=== PATIENT | male | born 1965 | race Caucasian/White ===

== ENCOUNTER 2021-06-03 06:32 | Inpatient (IN) ==
[2021-05-26 12:57] LABS: Appearance,Urine CLEAR (Clear); Bilirubin,Urine Negative (Negative); Color,Urine YELLOW; Culture Indicated,Urine No; Glucose,Urine (UA) Negative (Negative); Ketones,Urine Negative (Negative); Leukocyte Esterase,Urine Negative /uL (Negative); Nitrate,Urine Negative (Negative); Protein,Urine Negative (Negative); Urine Blood Negative (Negative); Urobilinogen,Urine Negative
[2021-05-26 14:45] LABS: Basophils # (Auto) 0 K/mcL (0.00-0.30); Basophils % (Auto) 0 % (0.0-2.0); Eosinophils # (Auto) 0.09 K/mcL (0.00-0.70); Eosinophils % (Auto) 1.2 % (0.0-7.0); Hematocrit 39.8 % (40.1-51.0); Hemoglobin 13.2 g/dL (13.7-17.5); Lymphocytes # (Auto) 4.02 K/mcL (1.50-4.80); Lymphocytes % (Auto) 52.4 % (15.5-49.0); Mean Cell Volume 93.2 fL (80.0-100.0); Mean Corpuscular HGB Conc 33.2 g/dL (31.0-36.0); Mean Platelet Volume 10.6 fL (7.4-10.4); Monocytes # (Auto) 0.44 K/mcL (0.10-0.90); Monocytes % (Auto) 5.7 % (1.0-12.0); Neutrophils % (Auto) 40.7 % (38.0-78.0); Platelet Count 190 K/mcL (140-440); RBC 4.27 M/mcL (4.63-6.08); Red Cell Distribution Width 13.1 % (11.5-14.5); WBC 7.7 K/mcL (4.5-11.0)
[2021-05-26 14:54] LABS: Blood Urea Nitrogen 18 mg/dL (6-20); Calcium 9.9 mg/dL (8.6-10.4); Carbon Dioxide 25 mmol/L (22-30); Chloride 98 mmol/L (96-108); Glomerular Filtration Rate 95; Glucose 83 mg/dL (70-105)
[2021-05-26 15:10] LABS: INR 1.2 (0.9-1.1); Prothrombin Time 15.8 sec (11.9-14.5)
--- NOTE | 2021-05-27 18:33 | EKG ---
[facility] Test Date: 2021-05-26 Pat Name: Marco A Justice Department: [employer] Room: Gender: Male Emergency Manager: : 1965 Requested By: Duncan Ramon Order Number: [id number] Reading MD: Geoffrey Weir Measurements Intervals [place] Rate: 60 P: 41 [place]: 144 QRS: -11 QRSD: 104 T: 63 QT: 416 QTc: 416 Interpretive Statements SINUS RHYTHM Electronically Signed On 05-27-2021 18:33:19 PST by Geoffrey Weir /store/[email or web address]/[id number]
[~2021-06-03 06:32] MED LIST: ceFAZolin 2 GM in DEXTROSE 5% IN WATER 50 ML IV SCH
[2021-06-03] MEDS ORDERED: DEXAMETHASONE 10 MG/ML VIAL ONE (07:31)
[2021-06-03] MEDS ORDERED: GLYCOPYRROLATE 0.2 MG/ML VIAL IV ONE (07:31)
[2021-06-03] MEDS ORDERED: PROPOFOL 200 MG/20 ML VIAL IV ONE (07:31)
[2021-06-03] MEDS ORDERED: KETAMINE 50 MG/ML Syringe (ANEST) IV ONE (07:31)
[2021-06-03] MEDS ORDERED: ePHEDrine 50 MG/5 ML SYRINGE (ANEST) IV ONE (07:31)
[2021-06-03] MEDS ORDERED: LIDOCAINE HCL/PF 100 MG/5 ML SYRINGE IV ONE (07:31)
[2021-06-03] MEDS ORDERED: ONDANSETRON 4 MG/2 ML VIAL ONE (07:31)
[2021-06-03] MEDS ORDERED: fentaNYL 100 MCG/2 ML VIAL IV ONE (07:31)
[2021-06-03] MEDS ORDERED: MAGNESIUM SULFATE 2 GM/50 ML BAG IV ONE (07:31)
[2021-06-03] MEDS ORDERED: BUPIVACAINE 0.5% 50 ML VIAL IJ ONE (08:46)
[2021-06-03] MEDS ORDERED: ONDANSETRON 4 MG/2 ML VIAL IV PRN ×2 (09:54→10:01)
[2021-06-03] MEDS ORDERED: MEPERIDINE 50 MG/ML VIAL IM PRN (10:01)
[2021-06-03] MEDS ORDERED: ACETAMINOPHEN 1,000 MG/100 ML BAG IV ONE (10:01)
[2021-06-03] MEDS ORDERED: IPRATROPIUM/ALBUTEROL 3 ML AMPUL.NEB NEB PRN (10:01)
[2021-06-03] MEDS ORDERED: NALOXONE HCL 0.4 MG/ML VIAL IV PRN (10:01)
[2021-06-03] MEDS ORDERED: PROMETHAZINE 25 MG/ML VIAL IV PRN (10:01)
[2021-06-03] MEDS ORDERED: fentaNYL 100 MCG/2 ML VIAL IV PRN (10:01)
[2021-06-03] MEDS ORDERED: LACTATED RINGERS 250 ML IV PRN (10:01)
[2021-06-03] MEDS ORDERED: MEPERIDINE 25 MG/ML VIAL IV PRN (10:01)
[2021-06-03] MEDS ORDERED: PROMETHAZINE 25 MG/ML VIAL IM PRN (10:01)
[2021-06-03] MEDS ORDERED: LACTATED RINGERS 1,000 ML IV SCH (10:15)
--- NOTE | 2021-06-03 10:46 | XRay Report ---
CLINICAL INFORMATION: osteotomy calcaneus_ lateral, ann, Broden view COMPARISON: Preoperative films 12/23/2020 FINDINGS: Osteotomy extends obliquely across the posterior and central aspect of the calcaneus. It is transfixed by two screws. Relationships appear anatomic. Casting material obscures bone detail. Ankle mortise and talocalcaneal joints normal with alignment. IMPRESSION: Calcaneal osteotomy. Anatomic alignment Interpreted and Authenticated by: Will Navarro 06/03/21
--- NOTE | 2021-06-03 11:14 | Internal Medicine Consult Note ---
HPI Data of Consult Consult date: 06/03/21 Primary Care Provider: Randy Mullen Consult Narrative Patient Information: Note initiated : 06/03/21 at 11:09 am Service Date, if different from initiated Date: [] Patient: Marco A Justice 55 y/o M admitted on for Right Calcaneous Osteotomy. Chief Complaint: [] cc:: CC: Franklin Reilly Patient here for orthopedic procedure right foot. 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 History of depression and anxiety and obstructive sleep apnea. Surgery without complications. Patient postop in the PACU. Review of Systems: Pertinent positives as above. Denies headache/fever/chills/nausea/vomiting/chest or abdominal pain/cough/dyspnea/d iarrhea. Remaining 10 point review of system reviewed negative MEDS/ALLERGIES Home Medications and Allergies Home Medications Medication Instructions Recorded Confirmed Type apixaban 5 mg tablet (Eliquis) 5 mg PO BID 05/26/21 06/03/21 History atorvastatin 10 mg tablet 10 mg PO QDAY 05/26/21 06/03/21 History baclofen 10 mg tablet 20 mg PO TID 05/26/21 06/03/21 History citicoline 500 mg capsule 1,000 mg PO BID 05/26/21 06/03/21 History cyclosporine 0.05 % eye drops in a 1 drp OPHTHALMIC (EYE) Q12H 05/26/21 06/03/21 History dropperette (Restasis) divalproex 250 mg tablet,extended 250 mg PO BID 05/26/21 06/03/21 History release 24 hr lorazepam 1 mg tablet 1 mg PO QDAY PRN 05/26/21 06/03/21 History melatonin 10 mg tablet 40 mg PO QHS 05/26/21 06/03/21 History multivitamin 1 tab PO QDAY 05/26/21 06/03/21 History trazodone 50 mg tablet 100 mg PO QHS 05/26/21 06/03/21 History Allergies Allergy/AdvReac Type Severity Reaction Status Date / Time Penicillins Allergy Mild Other Verified 06/03/21 06:36 EXAM Constitutional Vitals: Temp Pulse Resp BP Pulse Ox 97.5 F 72 13 132/79 100 06/03/21 10:51 06/03/21 10:54 06/03/21 10:54 06/03/21 10:51 06/03/21 10:54 Exam: General: Alert, Awake, No acute Distress Eyes/N/T: EOMI, PERRL, Head/Neck: neck supple, normocephalic atraumatic CV: RRR, No murmurs, normal s1/s2 Pulm: Clear b/l, no wheezing/rhonchi/rales Abd: soft, nontender, +BS x4 Ext: no clubbing/cyanosis/edema Neuro: Alert, right hemiplegia from previous stroke Skin: warm/dry A/P Narrative A/P Narrative: A: *Status post right foot/ankle surgery: *h/o CVA with residual right hemiplegia: *h/o venous thrombosis: On Eliquis *Depression/anxiety: *NAGA: P: -Foot/ankle per Dr. Reilly -Continue home anticoagulation and other medications -PT/OT -Case management for placement needs Time Spent With Patient Time: Total time spent is greater than 50% in coordination of care (as documented) at patient's floor/unit and/or counseling patient:
[2021-06-03] MEDS: 0.9 % SODIUM CHLORIDE 10 ML SYRINGE IV SCH ×2 (13:39→22:57)
[2021-06-03] MEDS: morphine 4 MG/ML VIAL IV PRN (13:55)
--- NOTE | 2021-06-03 14:03 | Brief Operative Note ---
Brief Operative Note Date of procedure: 06/03/21 Pre-op diagnosis: peroneal nerve palsy; unstable ankle; Achilles contracture; right Post-op diagnosis: same Procedure: PL transfer to TA; Cheney osteotomy; KAREN; brostrom Grafts/Implants: Yes Anesthesia: GETA Findings: same Complications: none Surgeon: Franklin Reilly Estimated blood loss (cc): 0 Tourniquet Time (Minutes): 95 Specimens Removed/Pathology: none sent Condition: stable Disposition: PACU
[2021-06-03] MEDS: BACLOFEN 10 MG TABLET PO SCH ×2 (14:53→19:11)
[2021-06-03] MEDS: ceFAZolin 1 GM VIAL IV SCH ×2 (14:53→22:57)
[2021-06-03] MEDS: HYDROCODONE/APAP 7.5/325MG TABLET PO PRN ×2 (16:00→23:00)
[2021-06-03] MEDS: LORazepam 1 MG TABLET PO PRN (16:34)
[2021-06-03] MEDS: HYDROmorphone 0.5 MG/0.5 ML SYRINGE IV PRN (18:53)
[2021-06-03] MEDS: DIVALPROEX SODIUM 250 MG TABLET PO SCH (19:11)
[2021-06-03] MEDS: traZODone HCL 50 MG TABLET PO SCH (19:11)
[2021-06-03] MEDS: APIXABAN 5 MG TABLET PO SCH (19:11)
[2021-06-03] MEDS: Cyclosporine [Restasis] 0.05 % Dropperette OU SCH (19:13)
[2021-06-03] MEDS: CITICOLINE 500 MG PO SCH (19:13)
[2021-06-04] MEDS: HYDROmorphone 0.5 MG/0.5 ML SYRINGE IV PRN (01:00)
[2021-06-04] MEDS: LORazepam 1 MG TABLET PO PRN (01:39)
[2021-06-04] MEDS: HYDROCODONE/APAP 7.5/325MG TABLET PO PRN ×5 (04:41→20:49)
[2021-06-04] MEDS: 0.9 % SODIUM CHLORIDE 10 ML SYRINGE IV SCH ×3 (04:42→20:50)
[2021-06-04] MEDS: MULTIVIT,THER IRON,CA,FA & MIN 1 TABLET PO SCH (07:58)
[2021-06-04] MEDS: APIXABAN 5 MG TABLET PO SCH ×2 (07:58→20:50)
[2021-06-04] MEDS: DIVALPROEX SODIUM 250 MG TABLET PO SCH ×2 (07:58→20:50)
[2021-06-04] MEDS: ATORVASTATIN 10 MG TABLET PO SCH (07:58)
[2021-06-04] MEDS: BACLOFEN 10 MG TABLET PO SCH ×3 (07:58→20:49)
[2021-06-04] MEDS: CITICOLINE 500 MG PO SCH ×2 (07:59→21:42)
[2021-06-04] MEDS: Cyclosporine [Restasis] 0.05 % Dropperette OU SCH ×2 (08:00→21:42)
--- NOTE | 2021-06-04 08:23 | Orthopedic Progress Note ---
SUBJECTIVE Subjective Patient information: Note initiated : 06/04/21 at 8:22 am Service Date, if different from initiated Date: [] Patient: Marco A Justice 55 y/o M admitted on 06/03/21 for Right Calcaneous Osteotomy. Chief Complaint: [] Constitutional Vitals: Vital Signs Temp Pulse Resp BP Pulse Ox 97.2 F 69 18 104/64 95 06/04/21 07:27 06/04/21 07:27 06/04/21 07:27 06/04/21 07:27 06/04/21 07:27 Period Temp Pulse Resp BP Sys/Mccall Pulse Ox Last 24 Hr 96.8 F-97.8 F 55-85 7-18 94-141/60-83 94-100 Intake and Output 06/03/21 06/04/21 06/04/21 21:59 05:59 13:59 Intake Total 460 Output Total 650 1300 Balance -650 -840 Weight 176 lb 7 oz Intake & Output: Intake & Output 06/03/21 06/04/21 06/04/21 21:59 05:59 13:59 Intake Total 460 Output Total 650 1300 Balance -650 -840 Weight 176 lb 7 oz Intake: Oral 460 Output: Urine Catheter Amount 650 1300 Other: Meal Dinner Percent of Meal Consumed 100% Feeding Ability Independent Urine Appearance Clear Urine Color Bright Yellow Bright Yellow Uretheral ([place]) Bright Yellow OBJ DATA Labs CBC & Chem 7: 05/26/21 08:48 05/26/21 08:48 Meds: Medications Hydrocodone Bitart/Acetaminophen (Hydrocodone/Apap 7.5/325mg Tablet) 1 - 2 tab PO Q4HP PRN; Protocol PRN Reason: Per Pain Protocol Last Admin: 06/04/21 04:41 Dose: 2 tab Documented by: Apixaban (Apixaban 5 Mg Tablet) 5 mg PO BID [facility] Last Admin: 06/04/21 07:58 Dose: 5 mg Documented by: Atorvastatin Calcium (Atorvastatin 10 Mg Tablet) 10 mg PO QDAY [facility] Last Admin: 06/04/21 07:58 Dose: 10 mg Documented by: Baclofen (Baclofen 10 Mg Tablet) 20 mg PO TID [facility] Last Admin: 06/04/21 07:58 Dose: 20 mg Documented by: Divalproex Sodium (Divalproex Sodium 250 Mg Tablet) 250 mg PO BID [facility] Last Admin: 06/04/21 07:58 Dose: 250 mg Documented by: Hydromorphone HCl (Hydromorphone 0.5 Mg/0.5 Ml Syringe) 0.5 mg IV Q15MIN PRN; Protocol PRN Reason: Per Pain Protocol Last Admin: 06/04/21 01:00 Dose: 0.5 mg Documented by: Iron Carb/Multivit/Equipment Mechanic/Folic Acid (Multivit,Ther Iron,Ca,Fa & Min 1 Tablet) 1 tab PO DAILY [facility] Last Admin: 06/04/21 07:58 Dose: 1 tab Documented by: Lorazepam (Lorazepam 1 Mg Tablet) 1 mg PO DAILYP PRN PRN Reason: ANXIETY/SEDATION Last Admin: 06/04/21 01:39 Dose: 1 mg Documented by: Morphine Sulfate (Morphine 4 Mg/Ml Vial) 2 - 6 mg IV Q1HP PRN; Protocol PRN Reason: Per Pain Protocol Last Admin: 06/03/21 13:55 Dose: 2 mg Documented by: Ondansetron HCl (Ondansetron 4 Mg/2 Ml Vial) 4 mg IV Q6HP PRN; Protocol PRN Reason: Nausea And Vomiting Citicoline 500 Mg (Capsule) 2 dose PO BID [facility] Last Admin: 06/04/21 07:59 Dose: Not Given Documented by: Cyclosporine [ Restasis] 0.05 % Dropperette 1 dose OU Q12H [facility] Last Admin: 06/04/21 08:00 Dose: Not Given Documented by: Melatonin 10 Mg (Tablet) 1 dose PO QHS [facility] Last Admin: 06/03/21 19:13 Dose: Not Given Documented by: Sodium Chloride (0.9 % Sodium Chloride 10 Ml Syringe) 10 ml IV Q8 [facility] Last Admin: 06/04/21 04:42 Dose: 10 ml Documented by: Trazodone HCl (Trazodone Hcl 50 Mg Tablet) 100 mg PO QHS [facility] Last Admin: 06/03/21 19:11 Dose: 100 mg Documented by: A/P Time Spent With Patient Time: Total time spent is greater than 50% in coordination of care (as documented) at patient's floor/unit and/or counseling patient:
--- NOTE | 2021-06-04 08:33 | Orthopedic Progress Note ---
SUBJECTIVE Subjective Patient information: Note initiated : 06/04/21 at 8:22 am Service Date, if different from initiated Date: [] Patient: Marco A Justice 55 y/o M admitted on 06/03/21 for Right Calcaneous Osteotomy. Chief Complaint: [] Principal diagnosis: S/P right foot/ankle surgery Interval history: POD 1 from right foot and ankle surgery. Patient is doing well and has had minimal pain. He did have some drainage through his splint after surgery but it has since stopped. He is wondering if he can have his catheter removed this morning. He denies any ISLAS, CP, SOB, or any other acute symptoms. Constitutional Vitals: Vital Signs Temp Pulse Resp BP Pulse Ox 97.2 F 69 18 104/64 95 06/04/21 07:27 06/04/21 07:27 06/04/21 07:27 06/04/21 07:27 06/04/21 07:27 Period Temp Pulse Resp BP Sys/Mccall Pulse Ox Last 24 Hr 96.8 F-97.8 F 55-85 7-18 94-141/60-83 94-100 Intake and Output 06/03/21 06/04/21 06/04/21 21:59 05:59 13:59 Intake Total 460 Output Total 650 1300 Balance -650 -840 Weight 176 lb 7 oz Intake & Output: Intake & Output 06/03/21 06/04/21 06/04/21 21:59 05:59 13:59 Intake Total 460 Output Total 650 1300 Balance -650 -840 Weight 176 lb 7 oz Intake: Oral 460 Output: Urine Catheter Amount 650 1300 Other: Meal Dinner Percent of Meal Consumed 100% Feeding Ability Independent Urine Appearance Clear Urine Color Bright Yellow Bright Yellow Uretheral ([place]) Bright Yellow Exam: Exam of the RLE reveals some drainage through his splint but no active bleeding. He is NVI in RLE, no calf tenderness bilaterally OBJ DATA Labs CBC & Chem 7: 05/26/21 08:48 05/26/21 08:48 Meds: Medications Hydrocodone Bitart/Acetaminophen (Hydrocodone/Apap 7.5/325mg Tablet) 1 - 2 tab PO Q4HP PRN; Protocol PRN Reason: Per Pain Protocol Last Admin: 06/04/21 04:41 Dose: 2 tab Documented by: Apixaban (Apixaban 5 Mg Tablet) 5 mg PO BID [facility] Last Admin: 06/04/21 07:58 Dose: 5 mg Documented by: Atorvastatin Calcium (Atorvastatin 10 Mg Tablet) 10 mg PO QDAY [facility] Last Admin: 06/04/21 07:58 Dose: 10 mg Documented by: Baclofen (Baclofen 10 Mg Tablet) 20 mg PO TID [facility] Last Admin: 06/04/21 07:58 Dose: 20 mg Documented by: Divalproex Sodium (Divalproex Sodium 250 Mg Tablet) 250 mg PO BID [facility] Last Admin: 06/04/21 07:58 Dose: 250 mg Documented by: Hydromorphone HCl (Hydromorphone 0.5 Mg/0.5 Ml Syringe) 0.5 mg IV Q15MIN PRN; Protocol PRN Reason: Per Pain Protocol Last Admin: 06/04/21 01:00 Dose: 0.5 mg Documented by: Iron Carb/Multivit/[place]/Folic Acid (Multivit,Ther Iron,Ca,Fa & Min 1 Tablet) 1 tab PO DAILY [facility] Last Admin: 06/04/21 07:58 Dose: 1 tab Documented by: Lorazepam (Lorazepam 1 Mg Tablet) 1 mg PO DAILYP PRN PRN Reason: ANXIETY/SEDATION Last Admin: 06/04/21 01:39 Dose: 1 mg Documented by: Morphine Sulfate (Morphine 4 Mg/Ml Vial) 2 - 6 mg IV Q1HP PRN; Protocol PRN Reason: Per Pain Protocol Last Admin: 06/03/21 13:55 Dose: 2 mg Documented by: Ondansetron HCl (Ondansetron 4 Mg/2 Ml Vial) 4 mg IV Q6HP PRN; Protocol PRN Reason: Nausea And Vomiting Citicoline 500 Mg (Capsule) 2 dose PO BID [facility] Last Admin: 06/04/21 07:59 Dose: Not Given Documented by: Cyclosporine [ Restasis] 0.05 % Dropperette 1 dose OU Q12H [facility] Last Admin: 06/04/21 08:00 Dose: Not Given Documented by: Melatonin 10 Mg (Tablet) 1 dose PO QHS [facility] Last Admin: 06/03/21 19:13 Dose: Not Given Documented by: Sodium Chloride (0.9 % Sodium Chloride 10 Ml Syringe) 10 ml IV Q8 [facility] Last Admin: 06/04/21 04:42 Dose: 10 ml Documented by: Trazodone HCl (Trazodone Hcl 50 Mg Tablet) 100 mg PO QHS [facility] Last Admin: 06/03/21 19:11 Dose: 100 mg Documented by: A/P Narrative A/P Narrative: POD 1 s/p right foot/ankle surgery 1. Patient is POD 1 after foot and ankle surgery and is currently non-weight bearing on the right leg. He had issues after surgery with urination and had to be catheterized in the PACU. He previously had issues with surgery where he had a stroke and now has hemiparesis, has to be on blood thinners daily, is a fall risk due to hemiparesis and non-weightbearing status on right leg, has impaired communication, and is concerned of possible recurrent stroke at home and due to poor support care at home in this condition I feel that he is a candidate for placement in a correction facility until he is more stable. He also requires PT and speech therapy after surgery which would be much easier and convenient at the correction facility. 2. Case management to find placement as soon as possible, if today contact Dr. Reilly for discharge. 3. May discontinue vitale catheter 4. Remain non-weightbearing in splint until follow up around POD 14. 5. PT/OT while in hospital 6. Continue home anticoagulants Time Spent With Patient Time: Total time spent is greater than 50% in coordination of care (as documented) at patient's floor/unit and/or counseling patient:
[2021-06-04] MEDS: traZODone HCL 50 MG TABLET PO SCH (20:49)
[2021-06-05] MEDS: HYDROCODONE/APAP 7.5/325MG TABLET PO PRN ×4 (01:59→15:49)
[2021-06-05] MEDS: 0.9 % SODIUM CHLORIDE 10 ML SYRINGE IV SCH ×3 (04:59→20:20)
--- NOTE | 2021-06-05 07:18 | Orthopedic Progress Note ---
SUBJECTIVE Subjective Patient information: Note initiated : 06/05/21 at 7:15 am Service Date, if different from initiated Date: [] Patient: Marco A Justice 55 y/o M admitted on 06/03/21 for Right Calcaneous Osteotomy. Chief Complaint: [] Principal diagnosis: S/P right foot/ankle surgery Interval history: Postop day 2 status post right foot/ankle surgery and the patient is doing well with pain but does have some issues with urination after his catheter was removed yesterday. He is complaining of a fullness and issues voiding however he did have an episode of incontinence yesterday. He denies any chest pain, shortness of breath, fever, dysuria or any other acute symptoms. Constitutional Vitals: Vital Signs Temp Pulse Resp BP Pulse Ox 99 F 73 16 90/51 92 06/05/21 04:00 06/05/21 04:00 06/05/21 04:00 06/05/21 04:00 06/05/21 04:00 Period Temp Pulse Resp BP Sys/Mccall Pulse Ox Last 24 Hr 97.2 F-99 F 60-73 16-19 87-104/51-64 87-99 Intake and Output 06/04/21 06/05/21 06/05/21 21:59 05:59 13:59 Intake Total 120 Output Total 500 301 Balance -500 -181 Weight 178 lb Intake & Output: Intake & Output 06/04/21 06/05/21 06/05/21 21:59 05:59 13:59 Intake Total 120 Output Total 500 301 Balance -500 -181 Weight 178 lb Intake: Oral 120 Output: Void Amount 500 300 # of times incontinent of urine 1 Other: Urine Appearance Clear Clear Urine Color [place] Bright Yellow Urine Odor Normal Exam: Exam of the right lower extremity reveals dressings in place and dry. Patient is neurovascular intact in the right lower extremity. He has no calf tenderness bilaterally. OBJ DATA Labs CBC & Chem 7: 05/26/21 08:48 05/26/21 08:48 Meds: Medications Hydrocodone Bitart/Acetaminophen (Hydrocodone/Apap 7.5/325mg Tablet) 1 - 2 tab PO Q4HP PRN; Protocol PRN Reason: Per Pain Protocol Last Admin: 06/05/21 06:13 Dose: 2 tab Documented by: Apixaban (Apixaban 5 Mg Tablet) 5 mg PO BID [facility] Last Admin: 06/04/21 20:50 Dose: 5 mg Documented by: Atorvastatin Calcium (Atorvastatin 10 Mg Tablet) 10 mg PO QDAY [facility] Last Admin: 06/04/21 07:58 Dose: 10 mg Documented by: Baclofen (Baclofen 10 Mg Tablet) 20 mg PO TID [facility] Last Admin: 06/04/21 20:49 Dose: 20 mg Documented by: Divalproex Sodium (Divalproex Sodium 250 Mg Tablet) 250 mg PO BID [facility] Last Admin: 06/04/21 20:50 Dose: 250 mg Documented by: Hydromorphone HCl (Hydromorphone 0.5 Mg/0.5 Ml Syringe) 0.5 mg IV Q15MIN PRN; Protocol PRN Reason: Per Pain Protocol Last Admin: 06/04/21 01:00 Dose: 0.5 mg Documented by: Iron Carb/Multivit/[place]/Folic Acid (Multivit,Ther Iron,Ca,Fa & Min 1 Tablet) 1 tab PO DAILY [facility] Last Admin: 06/04/21 07:58 Dose: 1 tab Documented by: Lorazepam (Lorazepam 1 Mg Tablet) 1 mg PO DAILYP PRN PRN Reason: ANXIETY/SEDATION Last Admin: 06/04/21 01:39 Dose: 1 mg Documented by: Morphine Sulfate (Morphine 4 Mg/Ml Vial) 2 - 6 mg IV Q1HP PRN; Protocol PRN Reason: Per Pain Protocol Last Admin: 06/03/21 13:55 Dose: 2 mg Documented by: Ondansetron HCl (Ondansetron 4 Mg/2 Ml Vial) 4 mg IV Q6HP PRN; Protocol PRN Reason: Nausea And Vomiting Citicoline 500 Mg (Capsule) 2 dose PO BID [facility] Last Admin: 06/04/21 21:42 Dose: Not Given Documented by: Cyclosporine [ Restasis] 0.05 % Dropperette 1 dose OU Q12H [facility] Last Admin: 06/04/21 21:42 Dose: Not Given Documented by: Melatonin 10 Mg (Tablet) 1 dose PO QHS [facility] Last Admin: 06/04/21 21:42 Dose: Not Given Documented by: Sodium Chloride (0.9 % Sodium Chloride 10 Ml Syringe) 10 ml IV Q8 [facility] Last Admin: 06/05/21 04:59 Dose: 10 ml Documented by: Tamsulosin HCl (Tamsulosin 0.4 Mg Capsule) 0.4 mg PO HS JULISA Trazodone HCl (Trazodone Hcl 50 Mg Tablet) 100 mg PO QHS [facility] Last Admin: 06/04/21 20:49 Dose: 100 mg Documented by: A/P Narrative A/P Narrative: Postop day 2 status post right ankle/foot surgery Plan: Patient is complaining of issues urinating and his catheter was removed yesterday. At this point I will begin Flomax 0.4 mg daily. He is also not had a bowel movement yet so we will start MiraLAx daily. He is to remain nonweightbearing on the right lower extremity and continue with physical t herapy. We will continue planning for long-term facility discharge at earliest convenience. Time Spent With Patient Time: Total time spent is greater than 50% in coordination of care (as documented) at patient's floor/unit and/or counseling patient:
[2021-06-05] MEDS: ATORVASTATIN 10 MG TABLET PO SCH (08:05)
[2021-06-05] MEDS: MULTIVIT,THER IRON,CA,FA & MIN 1 TABLET PO SCH (08:05)
[2021-06-05] MEDS: POLYETHYLENE GLYCOL 3350 17 GM PACKET PO SCH (08:05)
[2021-06-05] MEDS: BACLOFEN 10 MG TABLET PO SCH ×3 (08:05→20:19)
[2021-06-05] MEDS: APIXABAN 5 MG TABLET PO SCH ×2 (08:05→20:19)
[2021-06-05] MEDS: DIVALPROEX SODIUM 250 MG TABLET PO SCH ×2 (08:05→20:20)
[2021-06-05] MEDS: CITICOLINE 500 MG PO SCH ×2 (08:06→20:27)
[2021-06-05] MEDS: Cyclosporine [Restasis] 0.05 % Dropperette OU SCH ×2 (08:06→20:27)
[2021-06-05] MEDS: morphine 4 MG/ML VIAL IV PRN (12:55)
[2021-06-05] MEDS ORDERED: TAMSULOSIN 0.4 MG CAPSULE PO ONE (13:40)
[2021-06-05] MEDS: HYDROmorphone 0.5 MG/0.5 ML SYRINGE IV PRN (19:01)
[2021-06-05] MEDS: TAMSULOSIN 0.4 MG CAPSULE PO SCH (20:19)
[2021-06-05] MEDS: traZODone HCL 50 MG TABLET PO SCH (20:20)
[2021-06-05] MEDS: LORazepam 1 MG TABLET PO PRN (21:24)
[2021-06-06] MEDS: 0.9 % SODIUM CHLORIDE 10 ML SYRINGE IV SCH ×3 (04:47→21:13)
[2021-06-06] MEDS: HYDROCODONE/APAP 7.5/325MG TABLET PO PRN ×5 (05:24→23:45)
[2021-06-06] MEDS: MULTIVIT,THER IRON,CA,FA & MIN 1 TABLET PO SCH (08:10)
[2021-06-06] MEDS: DIVALPROEX SODIUM 250 MG TABLET PO SCH ×2 (08:10→20:51)
[2021-06-06] MEDS: POLYETHYLENE GLYCOL 3350 17 GM PACKET PO SCH (08:10)
[2021-06-06] MEDS: ATORVASTATIN 10 MG TABLET PO SCH (08:10)
[2021-06-06] MEDS: APIXABAN 5 MG TABLET PO SCH ×2 (08:10→20:51)
[2021-06-06] MEDS: BACLOFEN 10 MG TABLET PO SCH ×3 (08:11→20:51)
[2021-06-06] MEDS: CITICOLINE 500 MG PO SCH ×2 (08:45→21:14)
[2021-06-06] MEDS: Cyclosporine [Restasis] 0.05 % Dropperette OU SCH ×2 (08:45→21:14)
--- NOTE | 2021-06-06 08:46 | Orthopedic Progress Note ---
SUBJECTIVE Subjective Patient information: Note initiated : 06/06/21 at 8:44 am Service Date, if different from initiated Date: [] Patient: Marco A Justice 55 y/o M admitted on 06/03/21 for Right Calcaneous Osteotomy. Chief Complaint: [] Principal diagnosis: S/P right foot/ankle surgery Constitutional Vitals: Vital Signs Temp Pulse Resp BP Pulse Ox 98.6 F 77 16 110/70 96 06/06/21 07:10 06/06/21 07:10 06/06/21 07:10 06/06/21 07:10 06/06/21 07:10 Period Temp Pulse Resp BP Sys/Mccall Pulse Ox Last 24 Hr 98.1 F-98.8 F 75-80 16-20 106-110/61-75 94-97 Intake and Output 06/05/21 06/06/21 06/06/21 21:59 05:59 13:59 Output Total 301 2 150 Balance -301 -2 -150 Weight 176 lb 3.2 oz Intake & Output: Intake & Output 06/05/21 06/06/21 06/06/21 21:59 05:59 13:59 Output Total 301 2 150 Balance -301 -2 -150 Weight 176 lb 3.2 oz Output: Void Amount 300 150 # of times incontinent of urine 1 2 Other: Meal Dinner Percent of Meal Consumed 100% Urine Appearance Clear Urine Color [place] Bright Yellow Expanded Lower Extremity Exam Foot/Toe exam: Present normal inspection Gait: Present unable to bear weight OBJ DATA Labs CBC & Chem 7: 05/26/21 08:48 05/26/21 08:48 Meds: Medications Hydrocodone Bitart/Acetaminophen (Hydrocodone/Apap 7.5/325mg Tablet) 1 - 2 tab PO Q4HP PRN; Protocol PRN Reason: Per Pain Protocol Last Admin: 06/06/21 05:24 Dose: 1 tab Documented by: Apixaban (Apixaban 5 Mg Tablet) 5 mg PO BID [facility] Last Admin: 06/06/21 08:10 Dose: 5 mg Documented by: Atorvastatin Calcium (Atorvastatin 10 Mg Tablet) 10 mg PO QDAY [facility] Last Admin: 06/06/21 08:10 Dose: 10 mg Documented by: Baclofen (Baclofen 10 Mg Tablet) 20 mg PO TID [facility] Last Admin: 06/06/21 08:11 Dose: 20 mg Documented by: Divalproex Sodium (Divalproex Sodium 250 Mg Tablet) 250 mg PO BID [facility] Last Admin: 06/06/21 08:10 Dose: 250 mg Documented by: Hydromorphone HCl (Hydromorphone 0.5 Mg/0.5 Ml Syringe) 0.5 mg IV Q15MIN PRN; P rotocol PRN Reason: Per Pain Protocol Last Admin: 06/05/21 19:01 Dose: 0.5 mg Documented by: Iron Carb/Multivit/[employer]esy [employer]/Folic Acid (Multivit,Ther Iron,Ca,Fa & Min 1 Tablet) 1 tab PO DAILY [facility] Last Admin: 06/06/21 08:10 Dose: 1 tab Documented by: Lorazepam (Lorazepam 1 Mg Tablet) 1 mg PO DAILYP PRN PRN Reason: ANXIETY/SEDATION Last Admin: 06/05/21 21:24 Dose: 1 mg Documented by: Morphine Sulfate (Morphine 4 Mg/Ml Vial) 2 - 6 mg IV Q1HP PRN; Protocol PRN Reason: Per Pain Protocol Last Admin: 06/05/21 12:55 Dose: 2 mg Documented by: Ondansetron HCl (Ondansetron 4 Mg/2 Ml Vial) 4 mg IV Q6HP PRN; Protocol PRN Reason: Nausea And Vomiting Citicoline 500 Mg (Capsule) 2 dose PO BID [facility] Last Admin: 06/05/21 20:27 Dose: Not Given Documented by: Cyclosporine [ Restasis] 0.05 % Dropperette 1 dose OU Q12H [facility] Last Admin: 06/05/21 20:27 Dose: Not Given Documented by: Melatonin 10 Mg (Tablet) 1 dose PO QHS [facility] Last Admin: 06/05/21 20:27 Dose: Not Given Documented by: Polyethylene Glycol (Polyethylene Glycol 3350 17 Gm Packet) 17 gm PO DAILY [facility] Last Admin: 06/06/21 08:10 Dose: 17 gm Documented by: Sodium Chloride (0.9 % Sodium Chloride 10 Ml Syringe) 10 ml IV Q8 [facility] Last Admin: 06/06/21 04:47 Dose: 10 ml Documented by: Tamsulosin HCl (Tamsulosin 0.4 Mg Capsule) 0.4 mg PO [facility] Last Admin: 06/05/21 20:19 Dose: 0.4 mg Documented by: Trazodone HCl (Trazodone Hcl 50 Mg Tablet) 100 mg PO QHS [facility] Last Admin: 06/05/21 20:20 Dose: 100 mg Documented by: A/P Narrative A/P Narrative: alignment looks reduced to nl toes pink. splint intact Time Spent With Patient Time: Total time spent is greater than 50% in coordination of care (as documented) at patient's floor/unit and/or counseling patient: Total time spent with greater than 50% in coordination of care (as documented) at patient's floor/unit and/or counseling patient:: less than 15 minutes
--- NOTE | 2021-06-06 08:49 | Discharge Plan ---
DC Instructions-General Patient Instructions Dressing Care: Cover dressing in shower Discharge Plan Patient/Caregiver Discharge Instructions Activity: as per physical therapy Diet: Regular Diet Prescriptions: No Action multivitamin [Daily Multivitamin] Tablet 1 tab PO QDAY 0RF trazodone 50 mg Tablet 100 mg PO QHS 0RF atorvastatin 10 mg Tablet 10 mg PO QDAY 0RF baclofen 10 mg Tablet 20 mg PO TID 0RF lorazepam 1 mg Tablet 1 mg PO QDAY PRN (Reason: Anxiety) 0RF divalproex 250 mg Tablet Extended Release 24 Hr 250 mg PO BID 0RF Restasis 0.05 % Dropperette 1 drp OPHTHALMIC (EYE) Q12H 0RF melatonin 10 mg Tablet 40 mg PO QHS 0RF Eliquis 5 mg Tablet 5 mg PO BID 0RF citicoline 500 mg Capsule 1,000 mg PO BID 0RF Follow Up Plan Patient Disposition: Xfer SNF Rehab Potential: Fair I certify that the patient requires SNF services: Yes Overall status at discharge: patient is not back to baseline Discharge Orders: Discharge Order (Routine); Ordered 06/06/21 Ordered By: Franklin Reilly
[2021-06-06] MEDS: TAMSULOSIN 0.4 MG CAPSULE PO SCH (20:52)
[2021-06-06] MEDS: traZODone HCL 50 MG TABLET PO SCH (20:52)
[2021-06-06] MEDS: LORazepam 1 MG TABLET PO PRN (20:53)
[2021-06-07] MEDS: HYDROCODONE/APAP 7.5/325MG TABLET PO PRN ×4 (03:51→16:46)
[2021-06-07] MEDS: 0.9 % SODIUM CHLORIDE 10 ML SYRINGE IV SCH ×3 (05:52→20:34)
[2021-06-07] MEDS: LORazepam 1 MG TABLET PO PRN (08:24)
[2021-06-07] MEDS: APIXABAN 5 MG TABLET PO SCH ×2 (08:27→20:34)
[2021-06-07] MEDS: MULTIVIT,THER IRON,CA,FA & MIN 1 TABLET PO SCH (08:27)
[2021-06-07] MEDS: DIVALPROEX SODIUM 250 MG TABLET PO SCH ×2 (08:27→20:33)
[2021-06-07] MEDS: ATORVASTATIN 10 MG TABLET PO SCH (08:27)
[2021-06-07] MEDS: POLYETHYLENE GLYCOL 3350 17 GM PACKET PO SCH (08:27)
[2021-06-07] MEDS: CITICOLINE 500 MG PO SCH ×2 (09:12→20:34)
[2021-06-07] MEDS: Cyclosporine [Restasis] 0.05 % Dropperette OU SCH ×2 (09:12→20:34)
[2021-06-07] MEDS: BACLOFEN 10 MG TABLET PO SCH ×3 (09:44→20:34)
[2021-06-07] MEDS: TAMSULOSIN 0.4 MG CAPSULE PO SCH (20:33)
[2021-06-07] MEDS: traZODone HCL 50 MG TABLET PO SCH (20:33)
[2021-06-07] MEDS: SENNOSIDES/DOCUSATE SODIUM 1 TAB TABLET PO SCH (20:33)
[2021-06-08] MEDS: HYDROCODONE/APAP 7.5/325MG TABLET PO PRN ×5 (02:02→16:43)
[2021-06-08] MEDS: 0.9 % SODIUM CHLORIDE 10 ML SYRINGE IV SCH ×3 (05:49→21:01)
[2021-06-08] MEDS: ATORVASTATIN 10 MG TABLET PO SCH (08:39)
[2021-06-08] MEDS: MULTIVIT,THER IRON,CA,FA & MIN 1 TABLET PO SCH (08:39)
[2021-06-08] MEDS: CITICOLINE 500 MG PO SCH ×2 (08:39→21:04)
[2021-06-08] MEDS: APIXABAN 5 MG TABLET PO SCH ×2 (08:39→21:02)
[2021-06-08] MEDS: SENNOSIDES/DOCUSATE SODIUM 1 TAB TABLET PO SCH ×2 (08:39→21:02)
[2021-06-08] MEDS: BACLOFEN 10 MG TABLET PO SCH ×3 (08:39→21:02)
[2021-06-08] MEDS: DIVALPROEX SODIUM 250 MG TABLET PO SCH ×2 (08:39→21:02)
[2021-06-08] MEDS: POLYETHYLENE GLYCOL 3350 17 GM PACKET PO SCH (08:39)
[2021-06-08] MEDS: Cyclosporine [Restasis] 0.05 % Dropperette OU SCH ×2 (08:39→21:04)
[2021-06-08] MEDS: LORazepam 1 MG TABLET PO PRN (10:21)
[2021-06-08] MEDS: TAMSULOSIN 0.4 MG CAPSULE PO SCH (21:02)
[2021-06-08] MEDS: traZODone HCL 50 MG TABLET PO SCH (21:02)
[2021-06-09] MEDS: 0.9 % SODIUM CHLORIDE 10 ML SYRINGE IV SCH ×3 (05:16→21:01)
[2021-06-09] MEDS: MULTIVIT,THER IRON,CA,FA & MIN 1 TABLET PO SCH (08:28)
[2021-06-09] MEDS: SENNOSIDES/DOCUSATE SODIUM 1 TAB TABLET PO SCH ×2 (08:28→21:02)
[2021-06-09] MEDS: ATORVASTATIN 10 MG TABLET PO SCH (08:28)
[2021-06-09] MEDS: APIXABAN 5 MG TABLET PO SCH ×2 (08:28→21:02)
[2021-06-09] MEDS: DIVALPROEX SODIUM 250 MG TABLET PO SCH ×2 (08:28→21:02)
[2021-06-09] MEDS: BACLOFEN 10 MG TABLET PO SCH ×4 (08:28→21:01)
[2021-06-09] MEDS: Cyclosporine [Restasis] 0.05 % Dropperette OU SCH ×2 (08:29→21:01)
[2021-06-09] MEDS: CITICOLINE 500 MG PO SCH ×2 (08:29→21:01)
[2021-06-09] MEDS: POLYETHYLENE GLYCOL 3350 17 GM PACKET PO SCH (08:29)
[2021-06-09] MEDS: HYDROCODONE/APAP 7.5/325MG TABLET PO PRN ×4 (08:35→21:03)
[2021-06-09] MEDS: LORazepam 1 MG TABLET PO PRN (11:21)
[2021-06-09] MEDS: TAMSULOSIN 0.4 MG CAPSULE PO SCH (21:02)
[2021-06-09] MEDS: traZODone HCL 50 MG TABLET PO SCH (21:02)
[2021-06-09] MEDS: morphine 4 MG/ML VIAL IV PRN (22:12)
[2021-06-10] MEDS: 0.9 % SODIUM CHLORIDE 10 ML SYRINGE IV SCH ×3 (04:56→21:00)
[2021-06-10] MEDS: HYDROCODONE/APAP 7.5/325MG TABLET PO PRN ×5 (04:56→22:07)
[2021-06-10] MEDS: MULTIVIT,THER IRON,CA,FA & MIN 1 TABLET PO SCH (08:08)
[2021-06-10] MEDS: ATORVASTATIN 10 MG TABLET PO SCH (08:08)
[2021-06-10] MEDS: SENNOSIDES/DOCUSATE SODIUM 1 TAB TABLET PO SCH ×2 (08:08→21:00)
[2021-06-10] MEDS: BACLOFEN 10 MG TABLET PO SCH ×3 (08:08→21:00)
[2021-06-10] MEDS: APIXABAN 5 MG TABLET PO SCH ×2 (08:08→21:00)
[2021-06-10] MEDS: DIVALPROEX SODIUM 250 MG TABLET PO SCH ×2 (08:08→21:00)
[2021-06-10] MEDS: LORazepam 1 MG TABLET PO PRN (08:08)
[2021-06-10] MEDS: Cyclosporine [Restasis] 0.05 % Dropperette OU SCH ×2 (08:32→21:01)
[2021-06-10] MEDS: CITICOLINE 500 MG PO SCH ×2 (08:32→21:01)
[2021-06-10] MEDS: POLYETHYLENE GLYCOL 3350 17 GM PACKET PO SCH (08:32)
--- NOTE | 2021-06-10 10:12 | Orthopedic Progress Note ---
SUBJECTIVE Subjective Patient information: Note initiated : 06/10/21 at 10:09 am Service Date, if different from initiated Date: [] Patient: Marco A Justice 55 y/o M admitted on 06/03/21 for Right Calcaneous Osteotomy. Chief Complaint: [] Principal diagnosis: S/P right foot/ankle surgery Interval history: mobilizing to chair Pertinent ROS: urinating without difficulty, mild pain Constitutional Vitals: Vital Signs Temp Pulse Resp BP Pulse Ox 98.1 F 58 L 18 104/72 96 06/10/21 07:36 06/10/21 07:36 06/10/21 07:36 06/10/21 07:36 06/10/21 07:36 Period Temp Pulse Resp BP Sys/Mccall Pulse Ox Last 24 Hr 97.4 F-98.5 F 58-84 16-22 103-112/65-72 95-99 Intake and Output 06/09/21 06/10/21 06/10/21 21:59 05:59 13:59 Intake Total 860 250 Output Total 802 400 50 Balance 58 -150 -50 Weight 168 lb 1.6 oz Intake & Output: Intake & Output 06/09/21 06/10/21 06/10/21 21:59 05:59 13:59 Intake Total 860 250 Output Total 802 400 50 Balance 58 -150 -50 Weight 168 lb 1.6 oz Intake: Oral 860 250 Output: Void Amount 800 400 50 # of times incontinent of urine 2 Other: Meal Dinner Percent of Meal Consumed 100% Feeding Ability Assist with Tray Set Up Urine Appearance Clear Clear Clear Urine Color Dark Yellow Dark Yellow Light Kaity Urine Odor Strong Normal # Voids 1 100 Expanded Lower Extremity Exam Ankle exam: Present ecchymosis (no ecchymosis), normal inspection and swelling (no swelling) OBJ DATA Labs CBC & Chem 7: 05/26/21 08:48 05/26/21 08:48 Meds: Medications Hydrocodone Bitart/Acetaminophen (Hydrocodone/Apap 7.5/325mg Tablet) 1 - 2 tab PO Q4HP PRN; Protocol PRN Reason: Per Pain Protocol Last Admin: 06/10/21 08:50 Dose: 1 tab Documented by: Apixaban (Apixaban 5 Mg Tablet) 5 mg PO BID JULISA Last Admin: 06/10/21 08:08 Dose: 5 mg Documented by: Atorvastatin Calcium (Atorvastatin 10 Mg Tablet) 10 mg PO QDAY [facility] Last Admin: 06/10/21 08:08 Dose: 10 mg Documented by: Baclofen (Baclofen 10 Mg Tablet) 20 mg PO TID [facility] Last Admin: 06/10/21 08:08 Dose: 20 mg Documented by: Divalproex Sodium (Divalproex Sodium 250 Mg Tablet) 250 mg PO BID [facility] Last Admin: 06/10/21 08:08 Dose: 250 mg Documented by: Iron Carb/Multivit/[place]/Folic Acid (Multivit,Ther Iron,Ca,Fa & Min 1 Tablet) 1 tab PO DAILY [facility] Last Admin: 06/10/21 08:08 Dose: 1 tab Documented by: Lorazepam (Lorazepam 1 Mg Tablet) 1 mg PO DAILYP PRN PRN Reason: ANXIETY/SEDATION Last Admin: 06/10/21 08:08 Dose: 1 mg Documented by: Morphine Sulfate (Morphine 4 Mg/Ml Vial) 2 - 6 mg IV Q1HP PRN; Protocol PRN Reason: Per Pain Protocol Last Admin: 06/09/21 22:12 Dose: 4 mg Documented by: Ondansetron HCl (Ondansetron 4 Mg/2 Ml Vial) 4 mg IV Q6HP PRN; Protocol PRN Reason: Nausea And Vomiting Citicoline 500 Mg (Capsule) 2 dose PO BID [facility] Last Admin: 06/10/21 08:32 Dose: Not Given Documented by: Cyclosporine [ Restasis] 0.05 % Dropperette 1 dose OU Q12H [facility] Last Admin: 06/10/21 08:32 Dose: Not Given Documented by: Melatonin 10 Mg (Tablet) 1 dose PO QHS [facility] Last Admin: 06/09/21 21:01 Dose: Not Given Documented by: Polyethylene Glycol (Polyethylene Glycol 3350 17 Gm Packet) 17 gm PO DAILY [facility] Last Admin: 06/10/21 08:32 Dose: 17 gm Documented by: Senna/Docusate Sodium (Sennosides/Docusate Sodium 1 Tab Tablet) 1 tab PO BID [facility] Last Admin: 06/10/21 08:08 Dose: 1 tab Documented by: Sodium Chloride (0.9 % Sodium Chloride 10 Ml Syringe) 10 ml IV Q8 [facility] Last Admin: 06/10/21 04:56 Dose: 10 ml Documented by: Tamsulosin HCl (Tamsulosin 0.4 Mg Capsule) 0.4 mg PO [facility] Last Admin: 06/09/21 21:02 Dose: 0.4 mg Documented by: Trazodone HCl (Trazodone Hcl 50 Mg Tablet) 100 mg PO QHS [facility] Last Admin: 06/09/21 21:02 Dose: 100 mg Documented by: A/P Narrative A/P Narrative: will need another 5 weeks NWB. f/u in clinic in 4-6 days Time Spent With Patient Time: Total time spent is greater than 50% in coordination of care (as documented) at patient's floor/unit and/or counseling patient: Total time spent with greater than 50% in coordination of care (as documented) at patient's floor/unit and/or counseling patient:: 15 - 24 minutes
[2021-06-10] MEDS: morphine 4 MG/ML VIAL IV PRN ×2 (11:52→16:19)
--- NOTE | 2021-06-10 12:31 | Internal Med Progress Note ---
SUBJECTIVE Subjective Patient information: Note initiated : 06/10/21 at 12:24 pm Service Date, if different from initiated Date: [] Patient: Marco A Justice 55 y/o M admitted on 06/03/21 for Right Calcaneous Osteotomy. Chief Complaint: [] Principal diagnosis: S/P right foot/ankle surgery Interval history: Patient here for orthopedic procedure right foot. 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 History of depression and anxiety and obstructive sleep apnea. Surgery without complications. Patient postop in the PACU. 06/10-I was asked by nursing staff to review Mr. Justice who has been here following ankle surgery for evaluation of medical issues. On reviewing chart patient has been seen by my colleague on the and has been medically stable. Nursing staff denies any active concerns. Patient would like to be discharged in 24 hours to SNF. At the time of evaluation patient is alert but in his usual baseline post CVA neurological deficit. His significant other Bharti was on phone. We had an extended conversation. Neither patient nor significant other Bharti had any active concerns or questions. They are looking forward to be transferred to SNF for continued posthospitalization rehab. He does endorses pain around the surgery site has been between 6 and 8 out of 10.He has been on baclofen/hydrocodone and morphine as needed for breakthrough pain management. Reviewed labs from the , stable hemodynamics. Constitutional Vitals: Vital Signs Temp Pulse Resp BP Pulse Ox 98.1 F 58 L 18 104/72 96 06/10/21 07:36 06/10/21 07:36 06/10/21 07:36 06/10/21 07:36 06/10/21 07:36 Period Temp Pulse Resp BP Sys/Mccall Pulse Ox Last 24 Hr 97.4 F-98.5 F 58-84 16-22 103-112/66-72 95-99 Intake and Output 06/09/21 06/10/21 06/10/21 21:59 05:59 13:59 Intake Total 860 250 Output Total 802 400 50 Balance 58 -150 -50 Weight 76.249 kg Alert responding commands, Expressive aphasia from previous CVA No anxiety Nonlabored breathing Intake & Output: Intake & Output 06/09/21 06/10/21 06/10/21 21:59 05:59 13:59 Intake Total 860 250 Output Total 802 400 50 Balance 58 -150 -50 Weight 76.249 kg Intake: Oral 860 250 Output: Void Amount 800 400 50 # of times incontinent of urine 2 Other: Meal Dinner Percent of Meal Consumed 100% Feeding Ability Assist with Tray Set Up Urine Appearance Clear Clear Clear Urine Color Dark Yellow Dark Yellow Light Kaity Urine Odor Strong Normal # Voids 1 100 OBJ DATA Labs CBC & Chem 7: 05/26/21 08:48 05/26/21 08:48 Meds: Medications Hydrocodone Bitart/Acetaminophen (Hydrocodone/Apap 7.5/325mg Tablet) 1 - 2 tab PO Q4HP PRN; Protocol PRN Reason: Per Pain Protocol Last Admin: 06/10/21 08:50 Dose: 1 tab Documented by: Apixaban (Apixaban 5 Mg Tablet) 5 mg PO BID [facility] Last Admin: 06/10/21 08:08 Dose: 5 mg Documented by: Atorvastatin Calcium (Atorvastatin 10 Mg Tablet) 10 mg PO QDAY [facility] Last Admin: 06/10/21 08:08 Dose: 10 mg Documented by: Baclofen (Baclofen 10 Mg Tablet) 20 mg PO TID [facility] Last Admin: 06/10/21 08:08 Dose: 20 mg Documented by: Divalproex Sodium (Divalproex Sodium 250 Mg Tablet) 250 mg PO BID [facility] Last Admin: 06/10/21 08:08 Dose: 250 mg Documented by: Iron Carb/Multivit/[place]/Folic Acid (Multivit,Ther Iron,Ca,Fa & Min 1 Tablet) 1 tab PO DAILY [facility] Last Admin: 06/10/21 08:08 Dose: 1 tab Documented by: Lorazepam (Lorazepam 1 Mg Tablet) 1 mg PO DAILYP PRN PRN Reason: ANXIETY/SEDATION Last Admin: 06/10/21 08:08 Dose: 1 mg Documented by: Morphine Sulfate (Morphine 4 Mg/Ml Vial) 2 - 6 mg IV Q1HP PRN; Protocol PRN Reason: Per Pain Protocol Last Admin: 06/10/21 11:52 Dose: 4 mg Documented by: Ondansetron HCl (Ondansetron 4 Mg/2 Ml Vial) 4 mg IV Q6HP PRN; Protocol PRN Reason: Nausea And Vomiting Citicoline 500 Mg (Capsule) 2 dose PO BID [facility] Last Admin: 06/10/21 08:32 Dose: Not Given Documented by: Cyclosporine [ Restasis] 0.05 % Dropperette 1 dose OU Q12H [facility] Last Admin: 06/10/21 08:32 Dose: Not Given Documented by: Melatonin 10 Mg (Tablet) 1 dose PO QHS [facility] Last Admin: 06/09/21 21:01 Dose: Not Given Documented by: Polyethylene Glycol (Polyethylene Glycol 3350 17 Gm Packet) 17 gm PO DAILY [facility] Last Admin: 06/10/21 08:32 Dose: 17 gm Documented by: Senna/Docusate Sodium (Sennosides/Docusate Sodium 1 Tab Tablet) 1 tab PO BID [facility] Last Admin: 06/10/21 08:08 Dose: 1 tab Documented by: Sodium Chloride (0.9 % Sodium Chloride 10 Ml Syringe) 10 ml IV Q8 [facility] Last Admin: 06/10/21 04:56 Dose: 10 ml Documented by: Tamsulosin HCl (Tamsulosin 0.4 Mg Capsule) 0.4 mg PO HS [facility] Last Admin: 06/09/21 21:02 Dose: 0.4 mg Documented by: Tramadol HCl (Tramadol 50 Mg Tablet) 50 mg PO Q4-6HP PRN; Protocol PRN Reason: Pain Trazodone HCl (Trazodone Hcl 50 Mg Tablet) 100 mg PO QHS [facility] Last Admin: 06/09/21 21:02 Dose: 100 mg Documented by: A/P Narrative A/P Narrative: * Status post right foot/ankle surgery: Patient managed per orthopedics Dr. Reilly. Await SNF transfer * h/o CVA with residual right hemiplegia: On statin/apixaban * H/o venous thrombosis: On Eliquis * Depression/anxiety: On Depakote/trazodone/lorazepam * NAGA: * Pain management on morphine/tramadol/hydrocodone/baclofen * HLD on statin Plan * Continue postop care per orthopedics * Discharge planning per major case detective to SNF likely in 24 hours * Pre-existing medical condition management home medications * PT OT/nutrition support * Pain management * No additional recommendations from hospitalist service Time Spent With Patient Time: Time spent on review of medical records/patient evaluation, treatment plan/coordinate discharge planning Total time spent with greater than 50% in coordination of care (as documented) at patient's floor/unit and/or counseling patient:: Greater than 35 minutes
[2021-06-10] MEDS: traMADol 50 MG TABLET PO PRN (14:09)
[2021-06-10] MEDS: TAMSULOSIN 0.4 MG CAPSULE PO SCH (21:00)
[2021-06-10] MEDS: traZODone HCL 50 MG TABLET PO SCH (21:00)
[2021-06-11] MEDS: 0.9 % SODIUM CHLORIDE 10 ML SYRINGE IV SCH (05:04)
[2021-06-11] MEDS: HYDROCODONE/APAP 7.5/325MG TABLET PO PRN (05:04)
--- NOTE | 2021-06-11 08:06 | Internal Med Progress Note ---
SUBJECTIVE Subjective Patient information: Note initiated : 06/11/21 at 8:04 am Service Date, if different from initiated Date: [] Patient: Marco A Justice 55 y/o M admitted on 06/03/21 for Right Calcaneous Osteotomy. Chief Complaint: [] Principal diagnosis: S/P right foot/ankle surgery Interval history: Patient here for orthopedic procedure right foot. 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 History of depression and anxiety and obstructive sleep apnea. Surgery without complications. Patient postop in the PACU. 06/10-I was asked by nursing staff to review Mr. Justice who has been here following ankle surgery for evaluation of medical issues. On reviewing chart patient has been seen by my colleague on the and has been medically stable. Nursing staff denies any active concerns. Patient would like to be discharged in 24 hours to SNF. At the time of evaluation patient is alert but in his usual baseline post CVA neurological deficit. His significant other Bharti was on phone. We had an extended conversation. Neither patient nor significant other Bharti had any active concerns or questions. They are looking forward to be transferred to SNF for continued posthospitalization rehab. He does endorses pain around the surgery site has been between 6 and 8 out of 10.He has been on baclofen/hydrocodone and morphine as needed for breakthrough pain management. Reviewed labs from the , stable hemodynamics. 06/11-patient had a good night. No overnight events. Await transfer to SNF. Case management coordinating. Operative site pain well controlled however intermittently worsening during movement. No additional concerns expressed by nursing staff Constitutional Vitals: Vital Signs Temp Pulse Resp BP Pulse Ox 97.9 F 58 L 20 112/70 99 06/11/21 07:46 06/11/21 04:00 06/11/21 07:46 06/11/21 07:46 06/11/21 07:46 Period Temp Pulse Resp BP Sys/Mccall Pulse Ox Last 24 Hr 97.5 F-98.7 F 58-68 16-20 92-121/57-78 95-99 Intake and Output 06/10/21 06/11/21 06/11/21 21:59 05:59 13:59 Intake Total 1040 300 Output Total 525 152 Balance 515 148 Weight 77.564 kg Alert but anxious Baseline aphasia Baseline neuro deficits from prior CVA Intake & Output: Intake & Output 06/10/21 06/11/21 06/11/21 21:59 05:59 13:59 Intake Total 1040 300 Output Total 525 152 Balance 515 148 Weight 77.564 kg Intake: Oral 1040 300 Output: Void Amount 525 150 # of times incontinent of urine 2 Other: Meal Dinner Percent of Meal Consumed 100% Urine Appearance Clear Clear Urine Color Dark Yellow OBJ DATA Labs CBC & Chem 7: 05/26/21 08:48 05/26/21 08:48 Meds: Medications Hydrocodone Bitart/Acetaminophen (Hydrocodone/Apap 7.5/325mg Tablet) 1 - 2 tab PO Q4HP PRN; Protocol PRN Reason: Per Pain Protocol Last Admin: 06/11/21 05:04 Dose: 1 tab Documented by: Apixaban (Apixaban 5 Mg Tablet) 5 mg PO BID [facility] Last Admin: 06/10/21 21:00 Dose: 5 mg Documented by: Atorvastatin Calcium (Atorvastatin 10 Mg Tablet) 10 mg PO QDAY [facility] Last Admin: 06/10/21 08:08 Dose: 10 mg Documented by: Baclofen (Baclofen 10 Mg Tablet) 20 mg PO TID [facility] Last Admin: 06/10/21 21:00 Dose: 20 mg Documented by: Divalproex Sodium (Divalproex Sodium 250 Mg Tablet) 250 mg PO BID [facility] Last Admin: 06/10/21 21:00 Dose: 250 mg Documented by: Iron Carb/Multivit/[place]/Folic Acid (Multivit,Ther Iron,Ca,Fa & Min 1 Tablet) 1 tab PO DAILY [facility] Last Admin: 06/10/21 08:08 Dose: 1 tab Documented by: Lorazepam (Lorazepam 1 Mg Tablet) 1 mg PO DAILYP PRN PRN Reason: ANXIETY/SEDATION Last Admin: 06/10/21 08:08 Dose: 1 mg Documented by: Morphine Sulfate (Morphine 4 Mg/Ml Vial) 2 - 6 mg IV Q1HP PRN; Protocol PRN Reason: Per Pain Protocol Last Admin: 06/10/21 16:19 Dose: 4 mg Documented by: Ondansetron HCl (Ondansetron 4 Mg/2 Ml Vial) 4 mg IV Q6HP PRN; Protocol PRN Reason: Nausea And Vomiting Citicoline 500 Mg (Capsule) 2 dose PO BID [facility] Last Admin: 06/10/21 21:01 Dose: Not Given Documented by: Cyclosporine [ Restasis] 0.05 % Dropperette 1 dose OU Q12H [facility] Last Admin: 06/10/21 21:01 Dose: Not Given Documented by: Melatonin 10 Mg (Tablet) 1 dose PO QHS [facility] Last Admin: 06/10/21 21:01 Dose: Not Given Documented by: Polyethylene Glycol (Polyethylene Glycol 3350 17 Gm Packet) 17 gm PO DAILY [facility] Last Admin: 06/10/21 08:32 Dose: 17 gm Documented by: Senna/Docusate Sodium (Sennosides/Docusate Sodium 1 Tab Tablet) 1 tab PO BID [facility] Last Admin: 06/10/21 21:00 Dose: 1 tab Documented by: Sodium Chloride (0.9 % Sodium Chloride 10 Ml Syringe) 10 ml IV Q8 [facility] Last Admin: 06/11/21 05:04 Dose: 10 ml Documented by: Tamsulosin HCl (Tamsulosin 0.4 Mg Capsule) 0.4 mg PO HS [facility] Last Admin: 06/10/21 21:00 Dose: 0.4 mg Documented by: Tramadol HCl (Tramadol 50 Mg Tablet) 50 mg PO Q4-6HP PRN; Protocol PRN Reason: Pain Last Admin: 06/10/21 14:09 Dose: 50 mg Documented by: Trazodone HCl (Trazodone Hcl 50 Mg Tablet) 100 mg PO QHS [facility] Last Admin: 06/10/21 21:00 Dose: 100 mg Documented by: A/P Narrative A/P Narrative: * Status post right foot/ankle surgery: Patient managed per orthopedics Dr. Reilly. Await SNF transfer coordination per case management * h/o CVA with residual right hemiplegia: On statin/apixaban * H/o venous thrombosis: On Eliquis * Depression/anxiety: On Depakote/trazodone/lorazepam * NAGA: Stable * Pain management on morphine/tramadol/hydrocodone/baclofen * HLD on statin Plan * Await SNF transfer * Pre-existing medical condition management home medications * PT OT/nutrition support * Pain management as per orthopedics Time Spent With Patient Time: Total time spent is greater than 50% in coordination of care (as documented) at patient's floor/unit and/or counseling patient: Total time spent with greater than 50% in coordination of care (as documented) at patient's floor/unit and/or counseling patient:: 25 - 35 minutes
[2021-06-11] MEDS: BACLOFEN 10 MG TABLET PO SCH (09:14)
[2021-06-11] MEDS: APIXABAN 5 MG TABLET PO SCH (09:15)
[2021-06-11] MEDS: MULTIVIT,THER IRON,CA,FA & MIN 1 TABLET PO SCH (09:15)
[2021-06-11] MEDS: DIVALPROEX SODIUM 250 MG TABLET PO SCH (09:15)
[2021-06-11] MEDS: SENNOSIDES/DOCUSATE SODIUM 1 TAB TABLET PO SCH (09:15)
[2021-06-11] MEDS: POLYETHYLENE GLYCOL 3350 17 GM PACKET PO SCH (09:15)
[2021-06-11] MEDS: ATORVASTATIN 10 MG TABLET PO SCH (09:15)
[2021-06-11] MEDS: traMADol 50 MG TABLET PO PRN (09:15)
[2021-06-11] MEDS: CITICOLINE 500 MG PO SCH (09:16)
[2021-06-11] MEDS: Cyclosporine [Restasis] 0.05 % Dropperette OU SCH (09:16)
--- NOTE | 2021-06-11 09:16 | Discharge Summary ---
Discharge Provider Provider Patient information: Note initiated : 06/11/21 at 9:15 am Service Date, if different from initiated Date: [] Patient: Marco A Justice 55 y/o M admitted on 06/03/21 for Right Calcaneous Osteotomy. Chief Complaint: [] Date of admission: 06/03/21 10:00 Discharge date: 06/11/21 Primary care physician: Randy Mullen Consults: 06/10/21 06:18 Consult to Physician [CONS] Routine Comment: Consulting Provider: Yandel Moyer Reason For Exam: Physician to Consult Discharge Meds Discharge Medications Home Medications apixaban 5 mg tablet (Eliquis) 5 mg PO BID 05/26/21 [History Confirmed 06/03/21 Last Taken 05/27/21] atorvastatin 10 mg tablet 10 mg PO QDAY 05/26/21 [History Confirmed 06/03/21 Last Taken Unknown] baclofen 10 mg tablet 20 mg PO TID 05/26/21 [History Confirmed 06/03/21 Last Taken Unknown] citicoline 500 mg capsule 1,000 mg PO BID 05/26/21 [History Confirmed 06/03/21 Last Taken Unknown] cyclosporine 0.05 % eye drops in a dropperette (Restasis) 1 drp OPHTHALMIC (EYE) Q12H 05/26/21 [History Confirmed 06/03/21 Last Taken Unknown] divalproex 250 mg tablet,extended release 24 hr 250 mg PO BID 05/26/21 [History Confirmed 06/03/21 Last Taken Unknown] lorazepam 1 mg tablet 1 mg PO QDAY PRN 05/26/21 [History Confirmed 06/03/21 Last Taken Unknown] melatonin 10 mg tablet 40 mg PO QHS 05/26/21 [History Confirmed 06/03/21 Last Taken Unknown] multivitamin 1 tab PO QDAY 05/26/21 [History Confirmed 06/03/21 Last Taken Unknown] trazodone 50 mg tablet 100 mg PO QHS 05/26/21 [History Confirmed 06/03/21 Last Taken Unknown] lorazepam 1 mg tablet 1 mg PO DAILYP PRN #30 tab 06/10/21 [Rx Last Taken Unknown] tamsulosin 0.4 mg capsule 0.4 mg PO HS #20 cap 06/10/21 [Rx Last Taken Unknown] tramadol 50 mg tablet 50 mg PO Q4-6HP PRN #0 tab 06/10/21 [Rx Last Taken Unknown] COURSE Hospital Course Hospital course: Discharge diagnosi * Status post right foot/ankle surgery: Transfer to SNF today * h/o CVA with residual right hemiplegia: Continue statin/apixaban * H/o venous thrombosis: On Eliquis * Depression/anxiety: On Depakote/trazodone/lorazepam * NAAG: Stable * Pain management on morphine/tramadol/hydrocodone/baclofen * HLD on statin Brief hospital course Patient here for orthopedic procedure right foot. 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 History of depression and anxiety and obstructive sleep apnea. Surgery without complications. Patient postop in the PACU. 06/10-I was asked by nursing staff to review Mr. Justice who has been here following ankle surgery for evaluation of medical issues. On reviewing chart patient has been seen by my colleague on the and has been medically st able. Nursing staff denies any active concerns. Patient would like to be discharged in 24 hours to SNF. At the time of evaluation patient is alert but in his usual baseline post CVA neurological deficit. His significant other Bharti was on phone. We had an extended conversation. Neither patient nor significant other Bharti had any active concerns or questions. They are looking forward to be transferred to SNF for continued posthospitalization rehab. He does endorses pain around the surgery site has been between 6 and 8 out of 10.He has been on baclofen/hydrocodone and morphine as needed for breakthrough pain management. Reviewed labs from the , stable hemodynamics. 06/11-patient had a good night. No overnight events. Await transfer to SNF. Case management coordinating. Operative site pain well controlled however intermittently worsening during movement. No additional concerns expressed by nursing staff Addendum Case management was able to coordinate discharge to [facility] today. Discharge diagnosis: Right ankle surgery Time Spent with Patient Time attestation: Total time spent providing and/or coordinating discharge services: EXAM Constitutional Vitals: Temp Pulse Resp BP Pulse Ox 97.9 F 58 L 20 112/70 99 06/11/21 07:46 06/11/21 04:00 06/11/21 07:46 06/11/21 07:46 06/11/21 07:46 Discharge Plan Patient/Caregiver Discharge Instructions Activity: as per physical therapy Diet: Regular Diet Instructions: Foot Osteotomy (DC) Activity Restrictions/Additional Instructions: Discharge Instructions: No weight bearing with right lower extremity. Leave the splint/dressing in place until seen in the physician's office. Keep clean, and dry. Cover the splint/dressing for showering. To avoid constipation while taking any narcotic pain medication, take an over the counter stool softener/laxative. Use your ice packs as directed, on for 20 minutes at a time, throughout the day. Ice and elevation will help with pain and swelling. If you have any questions or concerns call your orthopedic surgeon before going to the emergency room. [facility] has a cold roll packer sheet iron physician 24 hours per day/7 days per week and can be reached at [phone]. Call for fevers above 100.5 or pain not controlled by medication. This discharge packet is provided to you to help keep you informed about your care. We want to ensure you get everything you need when you go home. You will also be receiving a call from us in a few days to follow up with you and see how you are doing since your discharge. This gives us a chance to listen to any concerns you maybe experiencing since you were discharged or any additional needs you may have, as well as providing us feedback on your care experience. We strive to always provide excellent care and thank you for your feedback and for choosing [facility]. Prescriptions: New tramadol 50 mg Tablet 50 mg PO Q4-6HP PRN (Reason: Pain) Qty: 0 0RF lorazepam 1 mg Tablet 1 mg PO DAILYP PRN (Reason: Anxiety/Sedation) Qty: 30 0RF tamsulosin 0.4 mg Capsule 0.4 mg PO HS Qty: 20 0RF Continued multivitamin Tablet 1 tab PO QDAY 0RF trazodone 50 mg Tablet 100 mg PO QHS 0RF atorvastatin 10 mg Tablet 10 mg PO QDAY 0RF baclofen 10 mg Tablet 20 mg PO TID 0RF lorazepam 1 mg Tablet 1 mg PO QDAY PRN (Reason: Anxiety) 0RF divalproex 250 mg Tablet Extended Release 24 Hr 250 mg PO BID 0RF Restasis 0.05 % Dropperette 1 drp OPHTHALMIC (EYE) Q12H 0RF melatonin 10 mg Tablet 40 mg PO QHS 0RF Eliquis 5 mg Tablet 5 mg PO BID 0RF citicoline 500 mg Capsule 1,000 mg PO BID 0RF Follow Up Plan Follow up with: Franklin Reilly MD [Physician] - (Please call and schedule a follow up to be seen [email or web address].) Patient Disposition: Xfer SNF Rehab Potential: Fair I certify that the patient requires SNF services: Yes Overall status at discharge: patient is not back to baseline Discharge Orders: Discharge Order (Routine); Ordered 06/11/21 Ordered By: Franklin Reilly
[2021-06-11] MEDS ORDERED: MINERAL OIL 1 DOSE ENEMA PR ONE (09:41)
--- NOTE | 2021-07-28 14:13 | Operative Note ---
DATE OF OPERATION: 06/03/2021 PREOPERATIVE DIAGNOSES: Equinovarus deformity of the right foot. POSTOPERATIVE DIAGNOSES: Equinovarus deformity of the right foot. OPERATION: 1. Cheney osteotomy. 2. Peroneus longus tendon transfer to the tibialis anterior. 3. Brostrom procedure. 4. Chika hemiresection with lengthening of the Achilles tendon. SURGEON: Franklin Reilly M.D. BUNCHER HAND: Adilson Sandy PA-C. This providers expertise and technical skill were required throughout the case. The [facility] assisted with preoperative coordination, intraoperative retraction, wound closure, and dressing and splint application, as well as postoperative documentation and care coordination. ANESTHESIA: General. SUMMARY OF PROCEDURE: General anesthesia was obtained. The right leg was prepped and draped. A thigh level tourniquet was used. A curvilinear incision was made on the lateral aspect of the foot from the peroneal tendons to the fifth metatarsal. The incision was taken down to the peroneus longus tendon. This was identified. There was gross insufficiency of the ankle ligaments noted. Proximally peroneus longus was released through a stab incision at 10 cm above the tip of the lateral malleolus and then delivered into the distal wound. This was then protected for later tendon transfer. C-arm view was taken of the calcaneus and we then used the pins to plan the Cheney osteotomy. An 8 mm lateral resection was planned. This was marked with pins. The cut was then made. The tuberosity was mobilized laterally and into neutral alignment and internal fixation obtained through a stab incision. This was done with a 7.0 fully-threaded screw. A Brostrom procedure was then done. The ankle ligaments were removed off of the lateral malleolus. A SwiveLock was placed under mini C-arm control to the extensor retinaculum into the neck of the talus. Two suture anchors were placed into the fibula, one at the tip and the second just below the joint at the level of the anterior talofibular ligament. The attached sutures were then mobilized through the ankle ligaments and the retinaculum and then these were tied in a reduced position. The internal brace was then mobilized and tensioned. It was then anchored into the bone using a SwiveLock. These lateral incisions were irrigated and closed in layers with 2-0 Monocryl and then 3-0 nylons on the skin. We then lengthened the Achilles tendon using a hemisuction technique. Three incisions were made over the Achilles tendon transversely. The tendon was then released medially from the proximal and distal incision and laterally from the middle incision. Then, the ankle was dorsiflexed completely and the subtalar joint in neutral alignment. Finally, we made an incision over the tibialis anterior. We then did dissection under the anterior compartment. The peroneus longus was mobilized. It was then sutured into the tibialis anterior. We used passage through the tendon and then suturing using #2 FiberWire in a reduced position. This wound was also irrigated and closed. The patient's ankle and subtalar joint were quite reducible at this point. The case took under 2 hours of tourniquet time. The leg was dressed. The tourniquet was let down. The leg was then splinted in a reduced position. The sponge and needle count was correct. The patient tolerated the procedure well and was taken to the recovery room in stable condition. [id number] Job ID: [id number] Doc ID: [id number] Franklin Reilly MD
== END 2021-06-11 10:00 | DRG 501 ==
LOC: SUR 06:32 → MERGE 07:30 → EDSTATUS 07:30 → MEDSUR 10:00
PROVIDERS: ADMIT Orthopaedic Surgery Foot and Ankle Surgery; ATTEND Orthopaedic Surgery Foot and Ankle Surgery